=== PATIENT | male | born 1980 | race African-American/Black ===

== ENCOUNTER 2020-01-07 01:55 | Emergency (ER) | payer OTHER ==
[~2020-01-07] VITALS: Ht 190.5 cm; Wt 81.6 kg
[2020-01-07 01:59] VITALS: BP 120/80
[2020-01-07] MEDS ORDERED: LIDOCAINE HCL/PF 1% 10 MG/ML 5ML VIAL IJ ONE (02:30)
[2020-01-07] MEDS ORDERED: TETANUS, DIPHTHERIA, PERTUSSIS VAC/PF 0.5ML (>7YR OLD) IM ONE (02:30)
[2020-01-07] MEDS ORDERED: BACITRACIN ZINC OINT UDPKT TOP ONE (02:30)
== END 2020-01-07 03:15 | disposition home or self-care (01) ==
LOC: ER 01:55
DX: S61.011A Laceration without foreign body of right thumb without damage to nail, initial encounter (principal); W26.0XXA Contact with knife, initial encounter; Y93.89 Activity, other specified; Y92.89 Other specified places as the place of occurrence of the external cause; Y99.8 Other external cause status
CPT/HCPCS: 90471; 90715; 99283; J3490

== ENCOUNTER 2020-12-23 06:59 | Emergency (ER) | payer MEDICAID, OTHER ==
[~2020-12-23] VITALS: Ht 193 cm; Wt 86.0 kg
[2020-12-23] MEDS ORDERED: LIDOCAINE HCL 1% 20ML VIAL (Pyxis) INJ INFIL ONE (07:45)
[2020-12-23] MEDS ORDERED: CEFTRIAXONE SODIUM 250 MG/VIAL IM ONE (07:45)
[2020-12-23] MEDS ORDERED: AZITHROMYCIN 500 MG TABLET PO ONE (07:45)
[2020-12-23 08:12] VITALS: BP 132/71
[2020-12-23 08:12] LABS: CLARITY URINE CLEAR (CLEAR); COLOR URINE YELLOW (YELLOW); KETONES URINE NEGATIVE (NEGATIVE); LEUKOCYTE ESTERASE URINE NEGATIVE (NEGATIVE); NITRITE URINE NEGATIVE (NEGATIVE); OCCULT BLOOD URINE NEGATIVE (NEGATIVE); PROTEIN URINE NEGATIVE (NEGATIVE); SPECIFIC GRAVITY URINE 1.007 (1.005-1.030); UROBILINOGEN URINE 0.2 E.U./dL (0.2-1.0)
[2020-12-26 04:09] LABS: NEISSERIA GONORRHOEAE NAA Negative (Negative)
== END 2020-12-23 08:15 | disposition home or self-care (01) ==
LOC: ER 07:30
DX: Z20.2 Contact with and (suspected) exposure to infections with a predominantly sexual mode of transmission (principal); R10.30 Lower abdominal pain, unspecified; R03.0 Elevated blood-pressure reading, without diagnosis of hypertension; G40.909 Epilepsy, unspecified, not intractable, without status epilepticus
CPT/HCPCS: 81003; 87491; 87591; 96372; 99283; J0696; J3490

== ENCOUNTER 2021-06-29 11:48 | Emergency (ER) | payer MEDICAID ==
[~2021-06-29] VITALS: Ht 190.5 cm; Wt 86.0 kg
[2021-06-29 12:00] VITALS: BP 128/72
[2021-06-29] MEDS ORDERED: BACITRACIN ZINC OINT UDPKT TOP ONE (15:00)
[2021-06-29] MEDS ORDERED: LIDOCAINE HCL/PF 1% 10 MG/ML 5ML VIAL INFIL ONE (15:00)
[2021-06-29] MEDS ORDERED: IBUP-2029 MT (16:07)
[2021-06-29] MEDS ORDERED: ACET650T37 MT (16:07)
== END 2021-06-29 16:21 | disposition home or self-care (01) ==
LOC: ER 11:48
DX: S71.111A Laceration without foreign body, right thigh, initial encounter (principal); W01.0XXA Fall on same level from slipping, tripping and stumbling without subsequent striking against object, initial encounter; Y93.89 Activity, other specified; Y92.89 Other specified places as the place of occurrence of the external cause; Y99.8 Other external cause status
CPT/HCPCS: 12002; 99282; J3490

== ENCOUNTER 2021-06-29 21:31 | Emergency (ER) | payer MEDICAID, OTHER ==
[~2021-06-29] VITALS: Ht 182.9 cm; Wt 93.0 kg
[~2021-06-29 21:31] MED LIST: ACET650T37 MT; IBUP-2029 MT
[2021-06-30 00:19] VITALS: BP 126/89
== END 2021-06-30 00:21 | disposition home or self-care (01) ==
LOC: ER 21:31
DX: Z48.00 Encounter for change or removal of nonsurgical wound dressing (principal)
CPT/HCPCS: 93005; 99283

== ENCOUNTER 2021-07-12 18:40 | Emergency (ER) | payer OTHER, MEDICAID ==
[~2021-07-12] VITALS: Ht 193 cm; Wt 86.0 kg
[2021-07-12 18:57] VITALS: BP 124/89
== END 2021-07-12 20:54 | disposition home or self-care (01) ==
LOC: ER 18:40
DX: S71.111D Laceration without foreign body, right thigh, subsequent encounter (principal); X58.XXXD Exposure to other specified factors, subsequent encounter; F41.9 Anxiety disorder, unspecified; F31.9 Bipolar disorder, unspecified
CPT/HCPCS: 99281

== ENCOUNTER 2021-10-17 22:28 | Emergency (ER) | payer MEDICAID, OTHER ==
[~2021-10-17] VITALS: Ht 190.5 cm; Wt 88.0 kg
[2021-10-17] MEDS ORDERED: IBUPROFEN 600MG TABLET PO ONE (23:00)
[2021-10-18] MEDS ORDERED: PSEUDOEPHEDRINE HCL 30MG TABLET PO STA (01:07)
[2021-10-18 01:39] VITALS: BP 128/92
== END 2021-10-18 01:46 | disposition home or self-care (01) ==
LOC: ER 22:28
DX: B34.9 Viral infection, unspecified (principal); Z20.822 Contact with and (suspected) exposure to COVID-19
CPT/HCPCS: 71045; 87426; 99284

== ENCOUNTER 2022-01-27 18:35 | Emergency (ER) | payer MEDICAID, OTHER ==
[~2022-01-27] VITALS: Ht 190.5 cm; Wt 88.0 kg
[2022-01-27 18:41] VITALS: BP 106/76
== END 2022-01-27 22:46 | disposition home or self-care (01) ==
LOC: ER 18:35
DX: H93.93 Unspecified disorder of ear, bilateral (principal)
CPT/HCPCS: 99281

== ENCOUNTER 2022-03-12 10:51 | Emergency (ER) | payer MEDICAID, OTHER ==
[~2022-03-12] VITALS: Ht 190.5 cm; Wt 88.0 kg
[2022-03-12] MEDS ORDERED: DOXYCYCLINE HYCLATE 100MG CAPSULE PO ONE (12:15)
[2022-03-12] MEDS ORDERED: CEFTRIAXONE SODIUM 500 MG/VIAL IM ONE (12:15)
[2022-03-12] MEDS ORDERED: DOXY100C5 MT (12:37)
[2022-03-12 12:44] VITALS: BP 117/95
== END 2022-03-12 12:46 | disposition home or self-care (01) ==
LOC: ER 11:11
DX: R36.9 Urethral discharge, unspecified (principal)
CPT/HCPCS: 87491; 87591; 96372; 99283; J0696

== ENCOUNTER 2022-03-27 09:50 | Emergency (ER) | payer OTHER ==
[~2022-03-27] VITALS: Ht 190.5 cm; Wt 89.0 kg
[~2022-03-27 09:50] MED LIST changes: +DOXY100C5 MT
[2022-03-27 09:56] VITALS: BP 119/73
== END 2022-03-27 10:55 | disposition home or self-care (01) ==
LOC: ER 09:50
DX: T16.2XXA Foreign body in left ear, initial encounter (principal); X58.XXXA Exposure to other specified factors, initial encounter; Y93.89 Activity, other specified; Y92.031 Bathroom in apartment as the place of occurrence of the external cause
CPT/HCPCS: 99281

== ENCOUNTER 2022-07-23 19:15 | Emergency (ER) | payer OTHER ==
[~2022-07-23] VITALS: Ht 185.4 cm; Wt 77.0 kg
[~2022-07-23 19:15] MED LIST changes: +ACET-3163 MT; -ACET650T37 MT
[2022-07-23 19:34] VITALS: BP 129/79
== END 2022-07-23 20:55 | disposition left against medical advice (07) ==
LOC: ER 19:15
DX: Z53.21 Procedure and treatment not carried out due to patient leaving prior to being seen by health care provider (principal)

== ENCOUNTER 2023-05-09 10:24 | Emergency (ER) | payer OTHER ==
[~2023-05-09] VITALS: Ht 177.8 cm; Wt 88.5 kg
[2023-05-09 10:29] VITALS: BP 123/73; PULSE 64; RESP 16; TEMP 98.5; O2SAT 100
[2023-05-09] MEDS ORDERED: AMOX1TAB16 MT (13:32)
== END 2023-05-09 15:39 | disposition home or self-care (01) ==
LOC: ER 10:24
DX: S61.411A Laceration without foreign body of right hand, initial encounter (principal); F31.9 Bipolar disorder, unspecified; F20.9 Schizophrenia, unspecified; W54.0XXA Bitten by dog, initial encounter; Y93.89 Activity, other specified; Y92.89 Other specified places as the place of occurrence of the external cause; Y99.8 Other external cause status
CPT/HCPCS: 12002; 99284

== ENCOUNTER 2023-05-17 17:57 | Emergency (ER) | payer OTHER ==
[~2023-05-17] VITALS: Ht 193 cm; Wt 88.0 kg
[~2023-05-17 17:57] MED LIST changes: +AMOX1TAB16 MT
[2023-05-17 18:01] VITALS: TEMP 98.3; O2SAT 100
[2023-05-17 19:55] VITALS: BP 136/67; PULSE 81; RESP 17
== END 2023-05-17 19:56 | disposition home or self-care (01) ==
LOC: ER 18:13
DX: S61.411D Laceration without foreign body of right hand, subsequent encounter (principal); F20.9 Schizophrenia, unspecified; X58.XXXD Exposure to other specified factors, subsequent encounter
CPT/HCPCS: 99281; Z7610